=== PATIENT | male | born 1990 | race African-American/Black ===

== ENCOUNTER 2024-05-07 04:19 | Day surgery (SDC) | payer OTHER ==
[2024-05-05 12:21] VITALS: BMI 32.3
[2024-05-07] MEDS ORDERED: BUPIVACAINE HCL/PF 0.5% (5MG/ML) 10 ML VIAL ONE (07:27)
[2024-05-07] MEDS ORDERED: MIDAZOLAM HCL 2 MG/2 ML SINGLE DOSE VIAL ONE (07:28)
[2024-05-07] MEDS ORDERED: BACITRACIN ZINC 15 GM TUBE TOPICAL OINTMENT ONE (07:28)
[2024-05-07] MEDS ORDERED: PROPOFOL 40 ML ONE (07:29)
[2024-05-07] MEDS ORDERED: SUCCINYLCHOLINE CHLORIDE 200 MG/10 ML SYRINGE ONE (07:30)
[2024-05-07] MEDS ORDERED: LIDOCAINE HCL 1%, 10 MG/ML (20ML VIAL) ONE (07:44)
[2024-05-07] MEDS ORDERED: DEXTROSE 5%-0.45% SALINE 1,000 ML IV SCH (07:45)
[2024-05-07] MEDS: ceFAZolin SODIUM 1 GM VIAL IVPB ONE (07:58)
[2024-05-07] MEDS: BUPIVACAINE HCL/PF 0.5% (5 MG/ML) 30 ML VIAL IJ ONE (08:03)
[2024-05-07] MEDS: LIDOCAINE HCL 1%, 10 MG/ML (50 mL VIAL) INF ONE (08:03)
[2024-05-07] MEDS ORDERED: ACETAMINOPHEN INJECTION 100 ML ONE (08:18)
[2024-05-07] MEDS ORDERED: DEXAMETHASONE SOD PHOSPHATE 4 MG/1 ML VIAL ONE ×2 (08:18)
[2024-05-07] MEDS ORDERED: LACTATED RINGERS SOLUTION 1,000 ML IV SCH (08:45)
[2024-05-07 09:44] VITALS: RESP 18
[2024-05-07 11:03] VITALS: BP 138/86; PULSE 69; TEMP 98.3
== END 2024-05-07 11:12 | disposition home or self-care (01) ==
LOC: JASU-SURG 04:19
PROVIDERS: ATTEND Urology
PROC: 0VTTXZZ Resection of Prepuce, External Approach (ICD-10-PCS; principal; 2024-05-07 07:30)
DX: N47.1 Phimosis (principal)
CPT/HCPCS: 88304-TC; 94760; J0131